=== PATIENT | male | born 1940 ===

== ENCOUNTER → 2017-09-07 | Outpatient (REF) ==
[2017-09-07 12:46] LABS: CALCIUM 8.6 mg/dL (8.4-10.2); CREATININE, serum 1.22 mg/dL (0.66-1.25); POTASSIUM 3.4 mmol/L (3.4-5.0)
== END ==
LOC: ZCOL.LAB 12:21
PROVIDERS: Internal Medicine
DX: J44.9 Chronic obstructive pulmonary disease, unspecified (principal)